=== PATIENT | female | born 1980 | race Caucasian/White ===

== ENCOUNTER → 2024-12-24 16:23 | Outpatient (REF) | payer OTHER, SELFPAY ==
[2024-12-24 18:03] LABS: TSH 0.38 uIU/ml (0.47-4.68)
== END ==
LOC: REG 16:23
PROVIDERS: ATTENDING PHYSICIAN Internal Medicine Endocrinology, Diabetes & Metabolism; FAMILY PHYSICIAN Nurse Practitioner Family
DX: C73 Malignant neoplasm of thyroid gland (principal)
CPT/HCPCS: 36415; 84439; 84443